=== PATIENT | male | born 1975 | race Caucasian/White ===

== ENCOUNTER → 2018-12-18 19:33 | Emergency (ER) | payer OTHER ==
[~2018-12-18 19:33] MED LIST: Acetaminophen TAB* 325 MG PO ONE; Oseltamivir CAP* 75 MG CAP PO ONE
--- NOTE | 2018-12-18 20:36 | ED ---
Influenza-Like Illness - HPI Summary HPI Summary: 61-faro-[id number]-year-old male presents with flulike illness for the past day. He states for the past week he has had a cough. He states that his kid was diagnosed with croup. He states that his fevers started last night. He states he feels like he got hit by a truck. He denies any chest pressures or shortness of breath. He admits to a dry hacking cough. no abdominal pain, nausea, vomiting, or diarrhea. He admits to sinus congestion. He denies any headache or neck stiffness. - History of Current Complaint Chief Complaint: EDFluSymptoms Time Seen by Provider: 12/18/18 20:12 - Allergy/Home Medications Allergies/Adverse Reactions: Allergies Allergy/AdvReac Type Severity Reaction Status Date / Time No Known Allergies Allergy Verified 12/22/12 11:11 Home Medications: Home Medications BuPROPion XL* [Bupropion XL*] 1 tab PO DAILY 12/18/18 [History Confirmed ] Dextroamphetamine/Amphetamine [Dextroamp-Amphetamin 10 mg Tab] 25 mg PO DAILY [History Confirmed 12/18/18] PMH/Surg Hx/FS Hx/Imm Hx Endocrine/Hematology History: Denies: Hx Anticoagulant Therapy, Hx Diabetes, Hx Thyroid Disease Cardiovascular History: Denies: Hx Hypertension, Hx Pacemaker/ICD Respiratory History: Denies: Hx Asthma, Hx Chronic Obstructive Pulmonary Disease (COPD) History: Denies: Hx Renal Disease Musculoskeletal History: Reports: Hx Back Problems - low back pain with left leg pain Sensory History: Reports: Hx Contacts or Glasses - GLASSES Denies: Hx Hearing Aid Opthamlomology History: Reports: Hx Contacts or Glasses - GLASSES Neurological History: Denies: Hx Dementia, Hx Seizures Psychiatric History: Reports: Hx Attention Deficit Hyperactivity Disorder Denies: Hx Panic Disorder, Hx Substance Abuse - Surgical History Surgery Procedure, Year, and Place: L SHOULDER REPAIR FROM DISLOCATION 2001 IN [place].,. Lt SIDE L5-S1 [facility] 12/22/12 Hx Anesthesia Reactions: No Infectious Disease History: No Infectious Disease History: Denies: Hx Clostridium Difficile, Hx Hepatitis, Hx Human Immunodeficiency Virus (HIV), Hx Shingles, Hx Tuberculosis, Traveled Outside the [place] in Last 30 Days - Family History Known Family History: Positive: Non-Contributory - Social History Alcohol Use: None Substance Use Type: Reports: None Smoking Status (MU): Never Smoked Tobacco Review of Systems Positive: Fever Positive: Nasal Discharge Negative: Chest Pain Positive: Cough. Negative: Shortness Of Breath All Other Systems Reviewed And Are Negative: Yes Physical Exam Triage Information Reviewed: Yes Vital Signs On Initial Exam: Initial Vitals Temp Pulse Resp BP Pulse Ox 99.5 F 123 18 131/83 96 12/18/18 19:37 12/18/18 19:37 12/18/18 19:37 12/18/18 19:37 12/18/18 19:37 Vital Signs Reviewed: Yes Appearance: Positive: Ill-Appearing Skin: Positive: Warm, Dry Head/Face: Positive: Normal Head/Face Inspection Eyes: Positive: Normal, EOMI, RADHA, Conjunctiva Clear ENT: Positive: Normal ENT inspection, Pharynx normal, Nasal drainage, TMs normal Neck: Positive: Supple, Nontender, No Lymphadenopathy. Negative: Nuchal Rigidity Respiratory/Lung Sounds: Positive: Clear to Auscultation, Breath Sounds Present Cardiovascular: Positive: Normal, RRR Abdomen Description: Positive: Nontender, Soft Bowel Sounds: Positive: Present Musculoskeletal: Positive: Normal Neurological: Positive: Normal Psychiatric: Positive: Normal Diagnostics - Vital Signs Vital Signs Temp Pulse Resp BP Pulse Ox 12/18/18 19:37 99.5 F 123 18 131/83 96 - Laboratory Lab Statement: Any lab studies that have been ordered have been reviewed, and results considered in the medical decision making process. - Radiology chest Radiology Interpretation Completed By: ED Physician Summary of Radiographic Findings: no active disease Flu Symptom Course/Dx - Course Course Of Treatment: 81-[id number]-v[age]-year-old male presents with flulike illness for the past day. He states for the past week he has had a cough. He states that his kid was diagnosed with croup. He states that his fevers started last night. He states he feels like he got hit by a truck. He denies any chest pressures or shortness of breath. He admits to a dry hacking cough. no abdominal pain, nausea, vomiting, or diarrhea. He admits to sinus congestion. He denies any headache or neck stiffness. On exam appears ill. Lungs clear to auscultation. Abdomen soft nontender. Chest x-ray read by me as normal. Flu a positive. with change in symptoms and developed a fever last night likely start to develop flu yesterday so Tamiflu should be effective. Placed on Tamiflu. States take ibuprofen for fevers. Patient understands agrees plan. - Diagnoses Differential Diagnosis/HQI/PQRI: Positive: Influenza, Pneumonia, Upper Respiratory Infection Provider Diagnoses: Influenza Discharge - Sign-Out/Discharge Documenting (check all that apply): Patient Departure Patient Received Moderate/Deep Sedation with Procedure: No - Discharge Plan Condition: Good Disposition: HOME Prescriptions: Oseltamivir CAP* [Tamiflu CAP*] 75 mg PO BID #9 cap Patient Education Materials: Influenza (ED) Referrals: Michael Purvis MD [Primary Care Provider] - Additional Instructions: Take Tamiflu twice for 5 days first dose given in ED Take Tylenol and ibuprofen for muscle aches and fever every 6 hours drink plenty of fluids Return to ED if develop any new or worsening symptoms - Billing Disposition and Condition Condition: GOOD Disposition: Home
[2018-12-18 20:40] LABS: Influenza A Molecular POSITIVE (Negative)
[2018-12-18 21:14] VITALS: BP 151/78
== END | disposition home or self-care (01) ==
LOC: ED 19:33
DX: J10.1 Influenza due to other identified influenza virus with other respiratory manifestations (principal); F90.9 Attention-deficit hyperactivity disorder, unspecified type
CPT/HCPCS: 71046; 99282; A9270-GY